=== PATIENT | female | born 1980 | race Caucasian/White ===

== ENCOUNTER 2017-11-15 07:12 | Emergency (ER) | payer MEDICAID ==
[~2017-11-15] VITALS: Ht 167.6 cm; Wt 74.8 kg
[2017-11-15] MEDS ORDERED: Norco 10-325 T1 EACH PO (07:43)
[2017-11-15] MEDS ORDERED: IBUP800 PO (07:43)
[2017-11-15] MEDS ORDERED: Amoxicillin500 MG PO (07:43)
[2017-11-15] MEDS ORDERED: Prednisone20 MG PO (07:43)
[2017-11-15] MEDS ORDERED: Zofran4 MG PO (07:43)
== END 2017-11-15 08:01 | disposition home or self-care (01) ==
LOC: ER 07:12
DX: J02.0 Streptococcal pharyngitis (principal); F17.210 Nicotine dependence, cigarettes, uncomplicated
CPT/HCPCS: 87430; 99282